=== PATIENT | male | born 1940 | race Caucasian/White ===

== ENCOUNTER 2017-02-21 10:00 | Inpatient (IN) ==
[2017-02-21 12:42] LABS: Basophils # (Auto) 0 K/mcL (0.0-0.3); Basophils % (Auto) 0.6 % (0.0-2.0); Eosinophils # (Auto) 0.2 K/mcL (0.0-0.7); Eosinophils % (Auto) 2.3 % (0.0-7.0); Granulocytes % (Auto) 73.3 % (38.0-78.0); Lymphocytes # (Auto) 1.4 K/mcL (1.5-4.8); Lymphocytes % (Auto) 17.1 % (15.5-49.0); Mean Cell Volume 88.7 fL (80.0-100.0); Mean Corpuscular HGB Conc 33.4 g/dL (31.0-36.0); Mean Corpuscular Hemoglobin 29.7 pg (26.0-34.0); Monocytes # (Auto) 0.5 K/mcL (0.1-0.9); Monocytes % (Auto) 6.7 % (1.0-12.0); Platelet Count 265 K/mcL (140-440); RBC 5.11 M/mcL (4.50-5.90); Red Cell Distribution Width 14.4 % (11.5-14.5)
[2017-02-21 12:49] LABS: Blood Urea Nitrogen 23 mg/dl (8-23)
[2017-02-21 18:18] LABS: Appearance,Urine CLEAR; Bilirubin,Urine NEG (NEG); Color,Urine YELLOW; Glucose,Urine (UA) NEGATIVE (NEG); Leukocyte Esterase,Urine NEG /uL (NEG); Nitrate,Urine NEG (NEG); Protein,Urine NEG (NEG); Specific Gravity,Urine 1.019 (1.000-1.035); Urine Blood NEG mg/dL (<0.03); Urobilinogen,Urine NEG (NEG)
[2017-02-27] MEDS ORDERED: ACETAMINOPHEN 500 MG TABLET PO SCH (06:00)
[2017-02-27] MEDS ORDERED: ceFAZolin 1 GM VIAL IV SCH (06:00)
[2017-02-27] MEDS ORDERED: CELECOXIB 200 MG CAPSULE PO SCH (06:00)
[2017-02-27] MEDS ORDERED: oxyCODONE 10 MG TAB.ER.12H PO SCH (06:00)
[2017-02-27] MEDS ORDERED: GABAPENTIN 400 MG CAPSULE PO SCH (06:00)
[2017-02-27] MEDS ORDERED: ROPIVACAINE HCL/PF 49.5 ML, EPINEPHrine 0.5 MG, 0.9 % SODIUM CHLORIDE 9 ML IJ ONE (09:07)
[2017-02-27] MEDS ORDERED: IPRATROPIUM/ALBUTEROL 3 ML AMPUL.NEB NEB ONE ×2 (10:35→10:46)
[2017-02-27] MEDS ORDERED: MIDAZOLAM 5 MG/5 ML VIAL IV ONE (11:00)
[2017-02-27] MEDS ORDERED: PROPOFOL 200 MG/20 ML VIAL IV ONE (11:00)
[2017-02-27] MEDS ORDERED: TRANEXAMIC ACID 1,000 MG/10 ML VIAL IV ONE (11:00)
[2017-02-27] MEDS ORDERED: ePHEDrine 50 MG/ML AMPUL IV ONE (11:00)
[2017-02-27] MEDS ORDERED: ONDANSETRON 4 MG/2 ML VIAL IV ONE (11:00)
[2017-02-27] MEDS ORDERED: fentaNYL 100 MCG/2 ML VIAL IV ONE (11:00)
[2017-02-27] MEDS ORDERED: DEXAMETHASONE 10 MG/ML VIAL IV ONE (11:00)
[2017-02-27] MEDS ORDERED: LIDOCAINE HCL/PF 100 MG/5 ML SYRINGE IV ONE (11:00)
[2017-02-27] MEDS ORDERED: PROMETHAZINE 25 MG/ML VIAL IV PRN (11:59)
[2017-02-27] MEDS ORDERED: fentaNYL 100 MCG/2 ML VIAL IV PRN (11:59)
[2017-02-27] MEDS ORDERED: IPRATROPIUM/ALBUTEROL 3 ML AMPUL.NEB NEB PRN (11:59)
[2017-02-27] MEDS ORDERED: HYDROmorphone 2 MG/ML SYRINGE IV PRN ×2 (11:59→12:21)
[2017-02-27] MEDS ORDERED: FLUMAZENIL 0.1 MG/ML ML IV PRN (11:59)
[2017-02-27] MEDS ORDERED: ATROPINE SULFATE 0.4 MG/ML VIAL IV PRN (11:59)
[2017-02-27] MEDS ORDERED: ePHEDrine 50 MG/ML AMPUL IV PRN (11:59)
[2017-02-27] MEDS ORDERED: NALOXONE HCL 0.4 MG/ML VIAL IV PRN (11:59)
[2017-02-27] MEDS ORDERED: METHOCARBAMOL 1,000 MG/10 ML VIAL IV PRN (11:59)
[2017-02-27] MEDS ORDERED: MEPERIDINE 25 MG/ML SYRINGE IV PRN (11:59)
[2017-02-27] MEDS ORDERED: ONDANSETRON 4 MG/2 ML VIAL IV PRN ×2 (11:59→12:21)
[2017-02-27] MEDS ORDERED: METOPROLOL TARTRATE 5 MG/5 ML VIAL IV PRN (11:59)
[2017-02-27] MEDS ORDERED: diphenhydrAMINE 50 MG/ML VIAL IV PRN (11:59)
[2017-02-27] MEDS ORDERED: BENZOCAINE/MENTHOL 1 LOZENGE PO PRN (11:59)
[2017-02-27] MEDS ORDERED: ACETAMINOPHEN 1,000 MG/100 ML BOTTLE IV ONE (11:59)
[2017-02-27] MEDS ORDERED: LACTATED RINGERS 1,000 ML IV SCH (12:00)
[2017-02-27] MEDS ORDERED: HYDROcodone/APAP 10/325MG TABLET PO PRN (12:21)
[2017-02-27] MEDS ORDERED: MAGNESIUM HYDROXIDE 30 ML ORAL.SUSP PO PRN (12:21)
[2017-02-27] MEDS ORDERED: KETOROLAC 15 MG/ML VIAL IV PRN (12:21)
[2017-02-27] MEDS ORDERED: FLEETS ADULT ENEMA PR PRN (12:21)
[2017-02-27] MEDS ORDERED: TRANEXAMIC ACID 1,000 MG/10 ML VIAL IV SCH (12:21)
[2017-02-27] MEDS ORDERED: BISACODYL 10 MG SUPP.RECT PR PRN (12:21)
[2017-02-27] MEDS ORDERED: POLYETHYLENE GLYCOL 3350 17 GM PACKET PO PRN (12:21)
[2017-02-27] MEDS ORDERED: ACETAMINOPHEN 325 MG TABLET PO PRN (12:21)
--- NOTE | 2017-02-27 12:21 | Brief Operative Note ---
Date of procedure: 02/27/17 Pre-op diagnosis: left hip djd Post-op diagnosis: same Procedure: left ANTONIO Grafts/Implants: Yes Anesthesia: GETA Complications: none Complications Description: 02/27/17 12:21 none Surgeon: Cy Hamm [employer] Curriculum Developer: Severiano Barksdale Estimated blood loss (cc): 50 Specimens Removed/Pathology: none sent Condition: stable Disposition: PACU
[2017-02-27] MEDS ORDERED: GENTAMICIN SULFATE 800 MG/20 ML VIAL IR ONE (12:26)
[2017-02-27] MEDS ORDERED: ALBUTEROL SULFATE 1 PUFF INHALER INH PRN (12:27)
--- NOTE | 2017-02-27 13:10 | XRay Report ---
HISTORY: Reason for Exam:Post-Op Total Hip FINDINGS: Patient has a newly inserted well-positioned left hip prosthesis. There is no fracture. There are heterotopic calcifications medial to the prosthetic femoral neck. Patient has an indwelling right hip prosthesis which is also well-positioned. Moderate arthritis is present in the facets at L5-S1. IMPRESSION: Well-positioned new left hip prosthesis Interpreted and Authenticated by: Jayden Leiva 02/27/17
[2017-02-27] MEDS: 0.45 % SODIUM CHLORIDE 1,000 ML IV SCH ×2 (13:25→22:57)
--- NOTE | 2017-02-27 13:34 | Operative Note ---
DATE OF OPERATION: 02/27/2017 PREOPERATIVE DIAGNOSIS: Left hip degenerative arthritis. POSTOPERATIVE DIAGNOSIS: Left hip degenerative arthritis. PROCEDURE: Left total hip arthroplasty using cementless components. SURGEON: Cy Hamm M.D. SUPERVISOR FACEPIECE LINE: Severiano Barksdale PA-C. ANESTHESIA: General LMA anesthesia. COMPLICATIONS: None. BLOOD LOSS: About 50 to 100 mL. DESCRIPTION OF PROCEDURE: The patient was brought to the operating room and put to sleep with general LMA anesthesia. Once asleep, we confirmed the left hip was the operative site. Once done, we then sterilely prepped and draped the left hip. We made a superior posterior approach to the hip through the fascial layer and identified the superior capsule. This was released with the piriformis obturator internus and capsule. Once this was released, we then dislocated the hip and made the neck cut at 34 mm in length from the center of hip rotation. Once this was done, I then subluxed the hip anteriorly, removed the labrum and reamed up to the size 56, a 56 cup with no holes. We penetrated the medial wall and this was bone grafted. The 56 cup was tapped into place at 40 degrees of inclination and 20 degrees of anteversion. Once this was well fixed, a dual mobility liner was placed. We then broached up on the femur up to the size of a 5 stem. The 5 stem was placed. We made leg length measurements with a +4 neck length, slightly longer on the right. At this point, we then broached to make the stem sit deeper and reamed the canal up to a size 12 to allow for deeper penetration of the stem. A 5 was countersunk another 6 mm. We then placed a +8 neck length to balance the hip. The final implant was placed with a +8 neck length with a dual mobility outer body. Patient tolerated this well. We irrigated thoroughly and then tested the hip for stability up to 80 to 90 degrees without dislocation. The patient tolerated this well. We retested the leg lengths on the table. These seemed to be fairly equal. We irrigated thoroughly. We closed the capsule with #2 Ethibond, closed the fascial layer with a #1 Stratafix, closed the skin with 2-0 Vicryl and adhesive closure. The patient tolerated this well without complication. An abduction pillow applied. GABY:azra Job ID: [id number] Doc ID: [id number] Cy Hamm MD
[2017-02-27] MEDS: 0.9 % SODIUM CHLORIDE 10 ML SYRINGE IV SCH ×2 (13:38→20:56)
[2017-02-27] MEDS: GABAPENTIN 400 MG CAPSULE PO SCH ×2 (15:32→20:53)
[2017-02-27] MEDS: oxyCODONE/APAP 5/325MG TABLET PO PRN ×3 (15:36→20:54)
[2017-02-27] MEDS ORDERED: CARVEDILOL 6.25 MG TABLET PO SCH (17:30)
[2017-02-27] MEDS: ceFAZolin 1 GM VIAL IV SCH (17:41)
[2017-02-27] MEDS: DOCUSATE SODIUM 100 MG CAPSULE PO SCH (20:52)
[2017-02-27] MEDS ORDERED: DABIGATRAN ETEXILATE MESYLATE 150 MG PO SCH (21:00)
[2017-02-27] MEDS ORDERED: SENNOSIDES 1 TABLET PO SCH (21:00)
[2017-02-27] MEDS ORDERED: TEMAZEPAM 15 MG CAPSULE PO PRN (21:00)
[2017-02-27] MEDS ORDERED: LISINOPRIL 5 MG TABLET PO SCH (21:00)
[2017-02-27] MEDS ORDERED: ASPIRIN 325 MG ENTERIC COATED TABLET PO SCH (21:00)
[2017-02-27] MEDS: BENZOCAINE/MENTHOL 1 LOZENGE PO PRN (22:57)
[2017-02-28] MEDS: ceFAZolin 1 GM VIAL IV SCH (02:55)
[2017-02-28] MEDS: 0.9 % SODIUM CHLORIDE 10 ML SYRINGE IV SCH ×2 (02:56→04:32)
[2017-02-28] MEDS: oxyCODONE/APAP 5/325MG TABLET PO PRN ×2 (02:56→07:16)
[2017-02-28] MEDS: BENZOCAINE/MENTHOL 1 LOZENGE PO PRN (04:32)
[2017-02-28] MEDS ORDERED: PANTOPRAZOLE 40 MG TABLET PO SCH (07:30)
--- NOTE | 2017-02-28 07:37 | Orthopedic Progress Note ---
Subjective Patient information: Note initiated : 02/28/17 at 7:36 am Service Date, if different from initiated Date: [] Patient: David Dan 76 y/o M admitted on 02/27/17 for Left Total Hip Arthroplasty. Chief Complaint: [Pt is stable this morning on post operative day 1 without any significant concerns or complaints. Patients vital signs have remained stable. Patients dressing is dry and exhibits a grossly intact neurovascular and neuromotor exam. Patients 10 point ROS is otherwise negative. ] Objective Vital signs: Vital Signs Temp Pulse Resp BP Pulse Ox 02/28/17 07:22 94 02/28/17 07:13 97.8 F 20 123/55 98 02/28/17 04:37 97 02/28/17 02:49 97.7 F 85 20 130/91 98 02/28/17 02:45 98 02/27/17 23:32 98.4 F 86 20 127/75 98 02/27/17 19:57 97.7 F 82 20 137/91 97 02/27/17 19:56 97 02/27/17 16:00 98.1 F 16 123/76 100 02/27/17 15:15 138/95 100 02/27/17 14:45 145/94 98 02/27/17 14:15 105/60 100 02/27/17 14:00 132/88 100 02/27/17 13:45 123/82 100 02/27/17 13:30 96 F L 18 124/90 100 02/27/17 13:16 97.1 F 72 13 115/74 100 02/27/17 13:13 88 12 106/70 100 02/27/17 13:08 89 16 108/71 100 02/27/17 13:03 72 12 100/60 100 02/27/17 12:58 73 11 L 98/65 100 02/27/17 12:53 85 13 82/66 100 02/27/17 12:48 84 12 103/75 98 02/27/17 12:43 97.1 F 83 16 103/75 100 02/27/17 10:25 97 F 18 123/90 97 Intake and Output 02/27/17 02/28/17 02/28/17 21:59 05:59 13:59 Intake Total 1350 / 1350 1793 / 1793 Output Total 575 / 575 1475 / 1475 Balance 775 / 775 318 / 318 Intake: IV 953 / 953 Sodium Chloride 0.45% 1,000 ml 953 / 953 @ 100 mls/hr IV .Q10H NAVA Rx#: [id number] Oral 1350 / 1350 840 / 840 Output: Urine Catheter Amount 575 / 575 975 / 975 Void Amount 500 / 500 Other: Meal Dinner Percent of Meal Consumed 100% Feeding Ability Independent # Voids 1 Weight 248 lb Intake & Output: Intake & Output 02/27/17 02/28/17 02/28/17 21:59 05:59 13:59 Intake Total 1350 / 1350 1793 / 1793 Output Total 575 / 575 1475 / 1475 Balance 775 / 775 318 / 318 Weight 248 lb Intake: IV 953 / 953 Sodium Chloride 0.45% 1,000 ml 953 / 953 @ 100 mls/hr IV .Q10H NAVA Rx#: [id number] Oral 1350 / 1350 840 / 840 Output: Urine Catheter Amount 575 / 575 975 / 975 Void Amount 500 / 500 Other: Meal Dinner Percent of Meal Consumed 100% Feeding Ability Independent # Voids 1 Incision: Yes healing Incision clean and dry: Yes Dressing: Yes clean, Yes dry Weight bearing status: full Neurological exam IM: Yes oriented X3, Yes motor sensory intact, Yes neurovascular intact Extremities exam IM: Yes Foot pink and warm, Yes neurovascular intact - Labs CBC & BMP: 02/28/17 05:07 02/21/17 10:57 Labs: Orthopedic Labs 02/21/17 10:57 PT 14.0 INR 1.1 APTT 34 02/28/17 02/21/17 05:07 10:57 Hgb 15.1 Hct 36.7 L 45.3 Assessment and Plan (1) Hx of total hip arthroplasty The patient has been educated regarding dressing care, Physical Therapy recommendations, home exercises, restrictions, and follow up appointments. The patient has had all necessary DME prescribed. The patient has remained stable during their hospital course. The patient was discharge with a stable exam. Status: Acute
--- NOTE | 2017-02-28 07:40 | Discharge Summary ---
Ortho Discharge - ANTONIO - Patient Instructions Diet: Regular Diet Activity: activity as tolerated, weight bearing as tolerated Total Hip Protocol: Follow activity instructions as provided by Physical Therapy. Dressing Care: May shower in 2 days, Aquacel Ag - leave on for 5 days - Problem Maintenance (1) Hx of total hip arthroplasty Status: Acute - Follow Up Plan Follow Up Appointments: Cy Hamm MD [Physician] - 03/14/17 8:40 am Disposition: Home, Self-Care Prognosis: Good Rehab Potential: Good I certify that the patient requires SNF services: No Overall status at discharge: patient is progressing back to baseline - Orders For Discharge Prescriptions: Docusate Sodium [Colace] 100 mg PO BID #60 cap oxyCODONE/APAP [Percocet 5-325 mg] 1 - 2 tab PO Q4-6HP PRN #75 tab PRN Reason: Pain Level 3-6
--- NOTE | 2017-02-28 07:44 | Discharge Summary ---
Ortho Discharge - ANTONIO - Patient Instructions Diet: Regular Diet Activity: activity as tolerated, weight bearing as tolerated Total Hip Protocol: Follow activity instructions as provided by Physical Therapy. - Problem Maintenance (1) Hx of total hip arthroplasty Status: Acute - Follow Up Plan Follow Up Appointments: Cy Hamm MD [Physician] - 03/14/17 8:40 am Disposition: Home, Self-Care Prognosis: Good Rehab Potential: Good I certify that the patient requires SNF services: No - Orders For Discharge Prescriptions: Docusate Sodium [Colace] 100 mg PO BID #60 cap oxyCODONE/APAP [Percocet 5-325 mg] 1 - 2 tab PO Q4-6HP PRN #75 tab PRN Reason: Pain Level 3-6 Additional Discharge Orders: Physical Therapy at Discharge - ANTONIO Location: Determined By Patient Toilet Riser Discharge Order Location: Determined By Patient Walker Location: Determined By Patient
[2017-02-28] MEDS ORDERED: CARVEDILOL 3.125 MG TABLET PO SCH (08:00)
[2017-02-28] MEDS ORDERED: ATORVASTATIN 20 MG TABLET PO SCH (09:00)
[2017-02-28] MEDS ORDERED: CITALOPRAM 20 MG TABLET PO SCH (09:00)
[2017-02-28] MEDS ORDERED: DABIGATRAN ETEXILATE MESYLATE 75 MG CAPSULE PO SCH (09:00)
[2017-02-28] MEDS ORDERED: MULTIVIT,THER IRON,CA,FA & MIN 1 TABLET PO SCH (09:00)
[2017-02-28] MEDS ORDERED: TAMSULOSIN 0.4 MG CAPSULE PO SCH (09:00)
[2017-02-28] MEDS ORDERED: FISH OIL 1,000 MG CAPSULE PO SCH (09:00)
[2017-02-28] MEDS: GABAPENTIN 400 MG CAPSULE PO SCH (09:01)
[2017-02-28] MEDS: DOCUSATE SODIUM 100 MG CAPSULE PO SCH (09:05)
== END 2017-02-28 16:25 | disposition home or self-care (01) | DRG 470 ==
LOC: MEDSUR 02-27 10:00
PROVIDERS: ADMIT Orthopaedic Surgery; ATTEND Orthopaedic Surgery